=== PATIENT | male | born 1970 | race Two or more races ===

== ENCOUNTER → 2020-05-18 | Emergency (ER) | payer SELFPAY ==
[~2020-05-18] MED LIST: cefTRIAXone SOD 1,000 MG VL IM ONE; cefTRIAXone SOD 1,000 MG VL ONE
[2020-05-18 14:13] VITALS: BP 120/86
== END | disposition home or self-care (01) ==
LOC: ER 10:55 → EDSEX 10:55
DX: U07.1 COVID-19 (principal); J12.89 Other viral pneumonia
CPT/HCPCS: 36415; 71045; 87426; 96372; 99284; J0696; U0003